=== PATIENT | female | born 1985 ===

== ENCOUNTER 2019-01-13 08:36 | Emergency (ER) | payer MEDICAID, OTHER ==
[2019-01-13 08:41] VITALS: RESP 17
[2019-01-13 08:42] VITALS: BMI 21.9
[2019-01-13 08:50] VITALS: O2SAT 98
--- NOTE | 2019-01-13 08:52 | ED PDOC ---
HPI: CCC, URI, Sore Throat Time Seen by Provider: 01/13/19 09:21 Chief Complaint (Nursing): ENT Problem Chief Complaint (Provider): sore throat History Per: Patient History/Exam Limitations: no limitations Have you had recent travel within the past 21 days to any of the following countries: [place], [place], [place] or [place]?: No Onset/Duration Of Symptoms: Days (1 day duration) Current Symptoms Are (Timing): Still Present Location Of Pain: Ear(s), Throat, Diffuse Myalgias. denies: Sinus/es, Headache Sick Contacts (Context): None Associated Symptoms: Fever, Chills, Sore Throat, Myalgias, Diarrhea (1 episode yesterday of watery diarrhea). 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 She reports this began yesterday evening, she had an episode of measured fever 38 degrees Celsius. States the sore throat and ear pain are 7/10 pain and she is having difficulty swallowing both solids and liquids secondary to the pain. Associated with generalized malaise, palpitations and dypsnea and one episode of watery, non-bloody diarrhea. Mendel cough, chest pain, sick contacts, recent travel, leg swelling, nausea, vomiting, abdominal pain, or rhinorrhea. PMD: none. 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 Past Medical History Reviewed: Historical Data, Nursing Documentation, Vital Signs Vital Signs: Last Vital Signs Temp 101.0 F H 01/13/19 08:40 Pulse 95 H 01/13/19 08:40 Resp 17 01/13/19 08:40 BP 105/73 01/13/19 08:40 Pulse Ox 98 01/13/19 08:48 Primary Care Provider: FAMILY PROVIDER,NO - Medical History PMH: Denies: HIV, Chronic Kidney Disease Other PMH: Carrillo-parkinson white - Surgical History Surgical History: No Surg Hx - Family History Family History: States: Unknown Family Hx - Social History Current smoker - smoking cessation education provided: No - Home Medications Home Medications: Ambulatory Orders Medication Instructions Recorded Ascorbic Acid [Vitamin C] 500 mg PO BID 09/08/14 [place]-3 Fatty Acids/Fish Oil [Fish 1 cap PO DAILY 09/08/14 Oil 1,000 mg Capsule] Amoxicillin 500 mg PO Q12H 10 Days #20 tablet 01/13/19 - Allergies Allergies/Adverse Reactions: Allergies Allergy/AdvReac Type Severity Reaction Status Date / Time No Known Allergies Allergy Verified 11/27/15 21:49 Review of Systems Constitutional: Positive for: Fever, Chills. Negative for: Sweats, Weakness, Malaise, Weight loss Eyes: Negative for: Pain, Vision Change, Conjunctivae Inflammation ENT: Positive for: Ear Pain, Throat Pain, Throat Swelling. Negative for: Ear Discharge, Nose Pain, Nose Discharge, Nose Congestion, Mouth Pain, Mouth Swelling Cardiovascular: Positive for: Palpitations. Negative for: Chest Pain, Edema Respiratory: Positive for: Shortness of Breath. Negative for: Cough, Hemoptysis, SOB with Exertion, Wheezing Gastrointestinal: Positive for: Diarrhea (1 episode of watery non-bloody diarrhea). Negative for: Nausea, Vomiting, Abdominal Pain Genitourinary Female: Positive for: Frequency. Negative for: Dysuria, Vaginal Discharge Physical Exam - Physical Exam Appears: Positive for: Uncomfortable Skin: Positive for: Normal Color, Warm, Dry Eye Exam: Positive for: Normal appearance, PERRL ENT: Positive for: TM Is/Are (right TM- bulging with fluid behind TM), Hearing Is (diminished), Pharyngeal Erythema, Tonsillar Swelling (right tonsillar swelling). Negative for: Sinus Pain/Drainage, Nasal Congestion, Tonsillar Exudate Cardiovascular/Chest: Positive for: Regular Rate, Rhythm, Tachycardia Respiratory: Positive for: Normal Breath Sounds. Negative for: Decreased Breath Sounds, Accessory Muscle Use, Crackles, Rales, Stridor, Wheezing, Respiratory Distress Gastrointestinal/Abdominal: Positive for: Normal Exam, Bowel Sounds, Soft. Negative for: Tenderness, Distended, Guarding, Rebound Back: Positive for: Normal Inspection. Negative for: L CVA Tenderness, R CVA Tenderness Extremity: Positive for: Normal ROM. 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 Differential: Acute otitis media with strep pharyngitis vs. non-strep pharyngitis vs. infectious mononucleosis Plan: -- Urine dip -- EKG -- CBC -- [place] Ab -- Rapid Strep -- Urine Re-examined @ 1010 - Rapid strep positive - EKG: WPW with PVC's - Patient stable for discharge with prescription for antibiotic and referral for cardiology to follow up WPW Disposition - Clinical Impression Clinical Impression: Strep pharyngitis, Right ear pain - Patient ED Disposition Is Patient to be Admitted: No Doctor Will See Patient In The: Office - Disposition Referrals: [facility] [Outside] Hunter Cuevas MD [Staff Provider] - Disposition: Routine/Home Disposition Time: 10:21 Condition: IMPROVED Additional Instructions: FÉLIX FELDMAN, thank you for letting us take care of you today. Your provider was Anuj Garcia MD and you were treated for THROAT PAIN, FEVER. The emergency medical care you received today was directed at your acute symptoms. If you were prescribed any medication, please fill it and take as directed. It may take several days for your symptoms to resolve. Return to the Emergency Department if your symptoms worsen, do not improve, or if you have any other problems. Please contact your doctor or call one of the physicians/clinics you have been referred to that are listed on the Patient Visit Information form that is included in your discharge packet. Bring any paperwork you were given at discharge with you along with any medications you are taking to your follow up visit. Our treatment cannot replace ongoing medical care by a primary care provider outside of the emergency department. Thank you for allowing the [facility] team to be part of your care today. Take antibiotics as directed. Follow up with PMD in 1 week. Prescriptions: Amoxicillin 500 mg PO Q12H 10 Days #20 tablet Instructions: Strep Throat (DC) Forms: [employer] (Romansh)
[2019-01-13 09:34] LABS: BASO % 0.3 % (0.0-2.0); HEMOGLOBIN 12.5 g/dL (12.0-16.0); LYMPH % 6.9 % (20.0-40.0); MEAN CELL VOLUME 82.1 fl (81.0-99.0); MEAN CORPUSCULAR HEMOGLOBIN 27.1 pg (27.0-31.0); MEAN PLATELET VOLUME 8.4 fl (7.2-11.7); MONO # 0.7 K/uL (0.0-0.8); MONO % 4.7 % (0.0-10.0); NEUT # 12.4 K/uL (1.8-7.0); NEUT % 88.1 % (50.0-75.0); PLATELET COUNT 227 K/uL (130-400); RBC 4.61 Mil/uL (3.80-5.20); RED CELL DISTRIBUTION WIDTH 13.3 % (11.5-14.5); WHITE BLOOD COUNT 14.1 K/uL (4.8-10.8)
[2019-01-13 10:28] VITALS: BP 120/78; PULSE 96; TEMP 98.8
[2019-01-13 11:16] LABS: LYMPHOCYTE 7 % (20-50); MONOCYTE 5 % (0-10); NEUTROPHIL 88 % (42-75); PLATELET ESTIMATE NORMAL (NORMAL); TOTAL CELLS COUNTED 100
[2019-01-13 11:17] LABS: ANISOCYTOSIS SLIGHT; LARGE PLATELETS PRESENT; TEARDROP CELLS SLIGHT
--- NOTE | 2019-01-13 11:45 | CARD ---
APPROVED REPORT Date of service: 01/13/2019 EKG Measurement Heart [id number] <Conclusion> Sinus rhythm with frequent premature ventricular complexes Ventricular pre-excitation, WPW pattern type B Abnormal ECG
== END 2019-01-13 10:28 | disposition home or self-care (01) ==
LOC: H.ER 08:36
DX: J02.0 Streptococcal pharyngitis (principal); H92.01 Otalgia, right ear